=== PATIENT | male | born 1945 | race Caucasian/White ===

== ENCOUNTER 2020-12-17 12:54 | Outpatient (RCR) | payer MEDICARE, BC, SELFPAY ==
[2020-12-17 13:35] LABS: Abs Immature Grans 0.01 10^3/uL (0.0-0.06); Absolute Basophil Count 0.03 10^3/uL (0.0-0.2); Absolute Eosinophil Count 0.18 10^3/uL (0.0-0.7); Absolute Lymphocyte Count 0.92 10^3/uL (1.2-3.4); Absolute Monocyte Count 1.19 10^3/uL (0.1-0.8); Absolute Neutrophil Count 2.57 10^3/uL (1.2-6.7); Basophils % 0.6; Eosinophils % 3.7; HCT 40.5 % (40.0-50.0); Immature Grans % 0.2; Lymphocytes % 18.8; MCH 30.7 pg (27.0-33.0); MCHC 32.1 % (32.0-36.0); MCV 95.5 fL (80-95); MPV 12.7 fL (8.0-11.0); Monocytes % 24.3; Neutrophils % 52.4; Nucleated RBC 0 %; Platelet Count 118 10^3/uL (130-400); RBC 4.24 10^6/uL (4.36-5.78); RDW 14.8 % (11.8-14.1); RDW-SD 51.9 fL
[2020-12-17 13:47] LABS: ALT 22 U/L (16-63); AST 10 U/L (15-37); Albumin 3.4 g/dL (3.4-5.0); Alkaline Phosphatase 84 U/L (46-116); Anion Gap 4.5 mmol/L (3-11); BUN 13 mg/dL (7-18); Bilirubin, Total 0.7 mg/dL (0.2-1.0); CO2 29.5 mmol/L (21.0-32.0); CREATININE 0.7 mg/dL (0.70-1.30); Chloride 106 mmol/L (98-107); Glucose 95 mg/dL (74-106); LDH 167 U/L (85-227); Potassium 4.2 mmol/L (3.5-5.1); Sodium 140 mmol/L (136-145); Total Protein 6.3 g/dL (6.4-8.2)
[2020-12-18 12:21] LABS: IgA 150 mg/dL (85-499); IgG 360 mg/dL (610-1,616); IgM <12 mg/dL (35-242); Kappa Free Light Chain 0.69 mg/dL (0.33-1.94); Lambda Free Light Chain <0.44 mg/dL (0.57-2.63)
[2020-12-18 14:21] LABS: Albumin 66.4 % (55.8-66.1); Comment (See Note)
[2021-02-01 12:09] LABS: Immunotyping, Serum (See Note)
== END 2021-01-13 23:59 | disposition home or self-care (01) ==
LOC: INF 12:54
PROVIDERS: Internal Medicine Hematology & Oncology; Visit Provider Internal Medicine Medical Oncology
DX: C90.00 Multiple myeloma not having achieved remission (principal)
CPT/HCPCS: 36415; 80053; 82784; 83615; 83883; 84165; 85025; 86320

== ENCOUNTER 2020-12-27 02:37 | Outpatient (CLI) | payer MEDICARE, BC, SELFPAY ==
[2020-12-27 11:13] LABS: Abs Immature Grans 0.02 10^3/uL (0.0-0.06); Absolute Basophil Count 0.06 10^3/uL (0.0-0.2); Absolute Lymphocyte Count 0.41 10^3/uL (1.2-3.4); Absolute Monocyte Count 0.44 10^3/uL (0.1-0.8); Absolute Neutrophil Count 3.43 10^3/uL (1.2-6.7); Basophils % 1.3; Eosinophils % 2.2; HCT 42.2 % (40.0-50.0); HGB 13.3 g/dL (13.5-17.5); Immature Grans % 0.4; Lymphocytes % 9.2; MCH 30.6 pg (27.0-33.0); MCHC 31.5 % (32.0-36.0); MCV 97.2 fL (80-95); MPV 10.5 fL (8.0-11.0); Monocytes % 9.9; Nucleated RBC 0 %; Platelet Count 168 10^3/uL (130-400); RBC 4.34 10^6/uL (4.36-5.78); RDW 15.1 % (11.8-14.1); RDW-SD 54.5 fL; WBC 4.46 10^3/uL (4.4-10.8)
[2020-12-27 11:35] LABS: ALT 23 U/L (16-63); AST 16 U/L (15-37); Albumin 3.5 g/dL (3.4-5.0); Alkaline Phosphatase 77 U/L (46-116); Anion Gap 2.9 mmol/L (3-11); BUN 13 mg/dL (7-18); Bilirubin, Total 0.8 mg/dL (0.2-1.0); CO2 33.1 mmol/L (21.0-32.0); CREATININE 0.8 mg/dL (0.70-1.30); Calcium 8.3 mg/dL (8.5-10.1); Chloride 106 mmol/L (98-107); Glucose 104 mg/dL (74-106); LDH 178 U/L (85-227); Potassium 3.8 mmol/L (3.5-5.1); Sodium 142 mmol/L (136-145); Total Protein 6.4 g/dL (6.4-8.2)
[2020-12-28 09:54] LABS: IgA 108 mg/dL (85-499); IgG 376 mg/dL (610-1,616); IgM <12 mg/dL (35-242); Lambda Free Light Chain <0.44 mg/dL (0.57-2.63)
[2020-12-31 15:19] LABS: Albumin 67.8 % (55.8-66.1); Comment (See Note); Total Protein 6.2 g/dL (6.3-8.2)
[2021-02-01 12:09] LABS: Immunotyping, Serum (See Note)
== END 2020-12-27 02:38 | disposition home or self-care (01) ==
LOC: LBO 02:38
PROVIDERS: Visit Provider Internal Medicine Hematology & Oncology
DX: C90.00 Multiple myeloma not having achieved remission (principal)
CPT/HCPCS: 36415; 80053; 82784; 83615; 83883; 84165; 85025; 86320